=== PATIENT | female | born 1975 | race Caucasian/White ===

== ENCOUNTER 2017-05-11 23:08 | Emergency (ER) | payer OTHER ==
[2017-05-11 23:44] VITALS: BMI 34.9
[2017-05-12] MEDS ORDERED: Sodium Chloride 0.9% 1,000 ML IV STA (00:45)
--- NOTE | 2017-05-12 01:07 | ED PDOC ---
Arrival/HPI - General Chief Complaint: Medical Clearance Time Seen by Provider: 05/12/17 00:43 Historian: Patient - History of Present Illness Narrative History of Present Illness (Text): 05/12/17 01:09 A 41 year old female, who denies any past medical history, s/p hysterectomy 2 months ago, presents with a headache for the past two days. Patient reports she awoke with headache and nausea two days ago. Notes headache is frontal, throbbing and constant. During the day, patient developed a red blotchy rash to her face, chest and arms. Also felt subjectively febrile. Today, nausea improved , headache headache persists and reports stiffness of neck. No sick contacts, recent travels, recent sexual activities or vaginal discharge. PMD: Dr. Kaufman Time/Duration: Other (2 days) Symptom Onset: Sudden Symptom Course: Unchanged Activities at Onset: Rest Context: Home Past Medical History - Provider Review Nursing Documentation Reviewed: Yes - Psychiatric Hx Psychophysiologic Disorder: No Hx Substance Use: No - Surgical History Hx Hysterectomy: Yes - Anesthesia Hx Anesthesia: No Family/Social History - Physician Review Nursing Documentation Reviewed: Yes Family/Social History: No Known Family HX Smoking Status: Never Smoked Hx Alcohol Use: No Hx Substance Use: No Allergies/Home Meds Allergies/Adverse Reactions: Allergies No Known Allergies Allergy (Verified 05/11/17 23:44) Review of Systems - Physician Review All systems were reviewed & negative as marked: Yes - Review of Systems Gastrointestinal: Nausea Genitourinary Female: absent: Vaginal Discharge Musculoskeletal: Other (neck stiffness) Skin: Rash Neurological: Headache Physical Exam - Physical Exam Narrative Physical Exam (Text): 05/12/17 00:52 Constitutional: No acute distress. Head: Normocephalic. Atraumatic. Eyes: PERRL. ENT: Moist mucous membranes. Neck: Supple. Cardiovascular: Regular rate. Chest: No tenderness. Respiratory: Clear to auscultation bilaterally. GI: Soft. Nontender. Nondistended. Back: No CVA tenderness. Musculoskeletal: No tenderness or swelling of extremities. Skin: mild erythema branching to arm, chest, palms and face Neurologic: Alert, no focal deficit. negative kernig and brudzinski test Vital Signs Reviewed: Yes Vital Signs Temp Pulse Resp BP Pulse Ox 05/12/17 01:59 97.6 F 78 16 130/78 100 05/12/17 00:03 97.8 F 05/11/17 23:51 88 15 140/73 98 Blood Pressure: Normal Pulse: Regular Respiratory Rate: Normal Appearance: Positive for: Well-Appearing, Non-Toxic, Comfortable Pain Distress: None Mental Status: Positive for: Alert and Oriented X 3 Medical Decision Making ED Course and Treatment: 05/12/17 00:51 Impression: A 41 year old female with headache, rash and neck stiffness. Differential Diagnosis included but are not limited to: r/o meningitis Plan: -- chest xray -- CT head -- labs -- IV fluids -- Reassess and disposition Progress Notes: CT Head Without Intravenous Contrast FINDINGS: Artifacts: Some images are degraded by artifact likely relating to motion. Brain: No acute hemorrhage. No acute infarct. Ventricles: No hydrocephalus. Bones/joints: Unremarkable. No acute fracture. Soft tissues: Unremarkable. Sinuses: Unremarkable as visualized. No acute sinusitis. Mastoid air cells: Unremarkable as visualized. No mastoid effusion. IMPRESSION: No acute findings. Dictated and Authenticated by: Tarik Walden MD 05/12/2017 1:48 AM Eastern Time ([place] & [place]) 05/12/17 06:20 Labs unremarkable. Patient states she feels better today than yesterday. Offered lumbar puncture but patient declined. Discharged home, f/u primary care , return to ER for worsening fever, stiff neck, headache, vomiting, or any other problem. - Lab Interpretations Lab Results: 05/12/17 00:50 05/12/17 00:50 Lab Results 05/12/17 00:50: Sodium 137, Potassium 4.0, Chloride 104, Carbon Dioxide 26, Anion Gap 11, BUN 10, Creatinine 0.7, Est GFR ( Amer) > 60, Est GFR (Non- Af Amer) > 60, Random Glucose 88, Calcium 9.0, Total Bilirubin 0.4, AST 23, ALT 22, Alkaline Phosphatase 60, Total Protein 7.1, Albumin 3.6, Globulin 3.5, Albumin/Globulin Ratio 1.0 L 05/12/17 00:50: WBC 5.7, RBC 3.64, Hgb 10.6 L, Hct 31.2 L, MCV 85.7, MCH 29.1, MCHC 34.0, RDW 12.7, Plt Count 267, MPV 9.5, Gran % 37.2 L, Lymph % (Auto) 47.8 H, Worth % (Auto) 6.6 H, Eos % (Auto) 8.2 H, Baso % (Auto) 0.2, Gran # 2.13, Lymph # 2.7, Worth # 0.4, Eos # 0.5, Baso # 0.01 I have reviewed the lab results: Yes - RAD Interpretation Radiology Orders: 05/12/17 00:44 HEAD W/O CONTRAST [CT] Stat CHEST TWO VIEWS (PA/LAT) [RAD] Stat - Medication Orders Current Medication Orders: Discontinued Medications Sodium Chloride (Sodium Chloride 0.9%) 1,000 mls @ 999 mls/hr IV .Q1H1M STA Stop: 05/12/17 01:45 Last Admin: 05/12/17 00:50 Dose: 999 mls/hr - Scribe Statement The provider has reviewed the documentation as recorded by the Merlyibabdiel Bai Provider Scribe Attestation: All medical record entries made by the Merlyibabdiel were at my direction and personally dictated by me. I have reviewed the chart and agree that the record accurately reflects my personal performance of the history, physical exam, medical decision making, and the department course for this patient. I have also personally directed, reviewed, and agree with the discharge instructions and disposition. Disposition/Present on Arrival - Present on Arrival Any Indicators Present on Arrival: No History of DVT/PE: No History of Uncontrolled Diabetes: No Urinary Catheter: No History of Decub. Ulcer: No History Surgical Site Infection Following: None - Disposition Have Diagnosis and Disposition been Completed?: Yes Diagnosis: Headache, Rash Disposition: HOME/ ROUTINE Disposition Time: 02:25 Patient Plan: Discharge Condition: STABLE Discharge Instructions (ExitCare): Acute Headache (ED)
[2017-05-12 01:14] LABS: BASO # 0.01 K/mm3 (0.0-2.0); BASO % 0.2 % (0.0-3.0); EOS # 0.5 (0.0-0.7); EOS % 8.2 % (1.5-5.0); GRAN # 2.13 (1.4-6.5); GRAN % 37.2 % (50.0-68.0); HEMOGLOBIN 10.6 gm/dL (12.0-16.0); LYMPH # 2.7 (1.2-3.4); LYMPH % 47.8 % (22.0-35.0); MEAN CELL VOLUME 85.7 fL (80.0-105.0); MEAN CORPUSCULAR HEMOGLOBIN 29.1 pg (25.0-35.0); MEAN PLATELET VOLUME 9.5 fl (7.0-11.0); MONO # 0.4 (0.1-0.6); MONO % 6.6 % (1.0-6.0); PLATELET COUNT 267 10^3/uL (120.0-450.0); RBC 3.64 10^6/uL (3.5-6.1); RED CELL DISTRIBUTION WIDTH 12.7 % (11.5-14.5); WHITE BLOOD COUNT 5.7 10^3/ul (4.5-11.0)
[2017-05-12 01:17] LABS: ALBUMIN 3.6 g/dL (3.0-4.8); ALT/SGPT 22 U/L (7-56); AST/SGOT 23 U/L (15-39); BLOOD UREA NITROGEN 10 mg/dL (7-21); GFR AFRICAN-AMERICAN > 60; GFR NON-AFRICAN AMERICAN > 60
[2017-05-12 01:59] VITALS: BP 130/78; PULSE 78; RESP 16; TEMP 97.6; O2SAT 100
--- NOTE | 2017-05-12 09:38 | CT ---
PROCEDURE: CT HEAD WITHOUT CONTRAST. HISTORY: headache, stiff neck, subjective fever COMPARISON: None available. TECHNIQUE: Axial computed tomography images were obtained through the head/brain without intravenous contrast. Please note that evaluation of posterior fossa is somewhat limited due to patient motion artifact. Radiation dose: Total exam DLP = 774.23 mGy-cm. This CT exam was performed using one or more of the following dose reduction techniques: Automated exposure control, adjustment of the mA and/or kV according to patient size, and/or use of iterative reconstruction technique. FINDINGS: HEMORRHAGE: No intracranial hemorrhage. BRAIN: No mass effect or edema. No atrophy or chronic microvascular ischemic changes. VENTRICLES: Unremarkable. No hydrocephalus. CALVARIUM: Unremarkable. PARANASAL SINUSES: Unremarkable as visualized. No significant inflammatory changes. MASTOID AIR CELLS: Unremarkable as visualized. No inflammatory changes. OTHER FINDINGS: None. IMPRESSION: Normal CT of the Head. No intracranial mass, hemorrhage or evidence of acute infarct. Preliminary interpretation of this examination was reported by [facility] at 1:48 a.m. on 05/12/2017. There is concurrence of this report with the preliminary interpretation.
--- NOTE | 2017-05-12 12:14 | RAD ---
HISTORY: fever, headache, stiff neck COMPARISON: No prior. TECHNIQUE: Chest PA and lateral FINDINGS: LUNGS: No active pulmonary disease. PLEURA: No significant pleural effusion identified. No pneumothorax apparent. CARDIOVASCULAR: Normal. OSSEOUS STRUCTURES: No significant abnormalities. VISUALIZED UPPER ABDOMEN: Normal. OTHER FINDINGS: None. IMPRESSION: No active disease.
== END 2017-05-12 02:38 | disposition home or self-care (01) ==
LOC: ED 23:08 → MERGE 23:08 → ED 05-12 02:38
DX: R21 Rash and other nonspecific skin eruption (principal); R51 Headache
CPT/HCPCS: 70450; 71020; 80053; 85025; 87040; 96360; 99283; J7040